=== PATIENT | female | born 1965 ===

== ENCOUNTER 2021-06-25 18:54 | Emergency (ER) | payer SELFPAY ==
[2021-06-25] MEDS ORDERED: SODIUM CHLORIDE 0.9% 1000 ML 1,000 ML IV ONE (18:57)
[2021-06-25 18:59] VITALS: BP 120/65
--- NOTE | 2021-06-25 19:12 | Emergency Department Report ---
ED Dizziness HPI - General Chief Complaint: Dizziness Stated Complaint: DIZZINESS Time Seen by Provider: 06/25/21 18:57 Source: patient, EMS Mode of arrival: Stretcher Limitations: No Limitations - History of Present Illness Initial Comments: Patient presents by mother secondary to being dizzy and lightheaded. She gone to the [place]. She felt as though she was in a pass out. She felt very dizzy and lightheaded. She has never had symptoms like this before. EMS was called. They found the patient to be hypotensive and tachycardic. She did have positive orthostatics. She was given normal saline 500 mL IV in route. Patient states that she feels much better upon arrival. She no chest pain or back pain. There is no abdominal pain. Has no vomiting or diarrhea recently. She has no upper respiratory illness, but states that she might have been exposed to coronavirus. Patient has no loss of taste or smell. She has had no dysuria or frequency. She has no chest pain. Patient states she has not had symptoms like this previously. - Related Data Allergies Allergy/AdvReac Type Severity Reaction Status Date / Time No Known Allergies Allergy Unverified 06/25/21 18:57 ED Review of Systems ROS: Stated complaint: DIZZINESS Other details as noted in HPI Comment: All other systems reviewed and negative Constitutional: denies: fever Eyes: denies: vision change ENT: denies: epistaxis Respiratory: denies: cough Cardiovascular: denies: chest pain Endocrine: denies: unexplained weight loss Gastrointestinal: denies: abdominal pain Genitourinary: denies: dysuria Musculoskeletal: denies: back pain Skin: denies: rash Neurological: denies: headache Hematological/Lymphatic: denies: easy bruising ED Physical Exam - General Limitations: No Limitations, Other (Pulse ox noted and normal) General appearance: alert, in no apparent distress - Head Head exam: Present: atraumatic, normocephalic - Eye Eye exam: Present: normal appearance, EOMI - ENT ENT exam: Present: mucous membranes dry, normal external ear exam - Neck Neck exam: Present: normal inspection. Absent: tenderness, meningismus - Respiratory Respiratory exam: Present: normal lung sounds bilaterally. Absent: respiratory distress - Cardiovascular Cardiovascular Exam: Present: regular rate, normal rhythm - GI/Abdominal GI/Abdominal exam: Present: soft. Absent: tenderness - Extremities Exam Extremities exam: Present: normal capillary refill. Absent: calf tenderness - Back Exam Back exam: Absent: CVA tenderness (R), CVA tenderness (L) - Neurological Exam Neurological exam: Present: alert, oriented X3, CN II-XII intact. Absent: motor sensory deficit - Psychiatric Psychiatric exam: Present: normal affect, normal mood - Skin Skin exam: Present: warm, dry ED Course Vital Signs 06/25/21 18:57 Temperature 98.7 F Pulse Rate 85 Respiratory 16 Rate Blood Pressure 120/65 [Left] O2 Sat by Pulse 98 Oximetry - Reevaluation(s) Reevaluation #1: 06/25/21 1850-EMS was met upon arrival. IV and labs were ordered. Old records noted. Reevaluation #2: 06/25/21 19:26 Per of the ironing machine operator, patient refused labs. She just wanted to leave. We tried to locate the patient and the patient was not present. It appears as though she has eloped. I did not have the opportunity to discuss discharge or AMA paperwork with her. ED Medical Decision Making - Medical Decision Making Patient presented with dizziness and was found to be orthostatic by EMS. They had administered fluid. Patient was feeling better when I saw her. She apparently did not stay to complete treatment. Number not given the opportunity to discuss this with her. She had complained of feeling dizzy and feeling like she was in a pass out. EKG had been ordered to evaluate for dysrhythmia. I did not have the ability to discuss any of this with her prior to her departure. Critical Care Time: No Critical care attestation.: If time is entered above; I have spent that time in minutes in the direct care of this critically ill patient, excluding procedure time. ED Disposition Clinical Impression: Orthostatic hypotension, Dizziness Disposition: 07 LEFT AWOL/ELOPED Is pt being admited?: No Condition: Stable Instructions: Orthostatic Hypotension, Dizziness, [id number] Additional Instructions: Drink any water. Return for problems. Follow-up with your regular doctor for recheck and further testing. Avoid caffeine and other things that will cause dehydration. Referrals: PRIMARY MD JANE [Referring] - 3-5 Days YOLY STORY MD [Staff Physician] - 3-5 Days
== END 2021-06-25 19:25 | disposition left against medical advice (07) ==
LOC: ED 18:54
DX: I95.1 Orthostatic hypotension (principal); R42 Dizziness and giddiness
CPT/HCPCS: 99282